=== PATIENT | male | born 1990 | race Two or more races ===

== ENCOUNTER 2024-07-17 03:28 | Emergency (ER) | payer MEDICAID ==
[~2024-07-17] VITALS: Ht 175.3 cm; Wt 84.0 kg
[2024-07-17 03:30] VITALS: BP 138/78; PULSE 90; RESP 16; TEMP 98.4; O2SAT 96
[2024-07-17] MEDS ORDERED: BO1 TP (03:55)
[2024-07-17] MEDS: BACITRACIN ZINC OINT UDPKT TOP ONE (04:13)
== END 2024-07-17 04:11 | disposition home or self-care (01) ==
LOC: ER 03:47
DX: S90.822A Blister (nonthermal), left foot, initial encounter (principal); X58.XXXA Exposure to other specified factors, initial encounter; Y93.89 Activity, other specified; Y92.89 Other specified places as the place of occurrence of the external cause; Y99.8 Other external cause status
CPT/HCPCS: 99282